=== PATIENT | female | born 1990 | race Asian ===

== ENCOUNTER 2020-03-07 16:31 | Inpatient (IN) | payer BC ==
[~2020-03-07] VITALS: Ht 165.1 cm; Wt 77.3 kg
[~2020-03-07 16:31] MED LIST: FERR325T18 PO; IBUP-1222 PO; OXYC-302 PO; PREN1TAB52 PO
[2020-03-07] MEDS ORDERED: OXYTOCIN 30U/ 0.9% NaCL 500ML 500 ML IV ONE (16:54)
[2020-03-07] MEDS ORDERED: CALCIUM CARBONATE 500 MG TAB.CHEW PO PRN (17:00)
[2020-03-07] MEDS ORDERED: ONDANSETRON 2MG/ML, 2ML IVPush PRN ×2 (17:00→23:00)
[2020-03-07] MEDS ORDERED: FENTANYL PF 100 MCG/2ML IVPush PRN (17:00)
[2020-03-07] MEDS: LACTATED RINGERS 1,000 ML IV SCH ×2 (17:00→22:00)
[2020-03-07] MEDS ORDERED: TERBUTALINE 1 MG/ML, 1ML IVPush PRN (17:00)
[2020-03-07] MEDS ORDERED: FENTANYL PF 100 MCG/2ML IV PRN (17:00)
[2020-03-07] MEDS ORDERED: TERBUTALINE 1 MG/ML, 1ML SQ PRN (17:00)
[2020-03-07 17:19] LABS: BASOPHILS # (AUTO) 0.04 x10^3/uL (0-0.1); BASOPHILS % (AUTO) 1 % (0-1); EOSINOPHILS # (AUTO) 0.05 x10^3/uL (0-0.4); EOSINOPHILS % (AUTO) 1 % (1-7); LYMPHOCYTES # (AUTO) 1.58 x10^3/uL (1-3.4); LYMPHOCYTES % (AUTO) 19 % (22-44); MD NO; MEAN CORPUSCULAR HEMOGLOBIN 24.9 pg (27.0-34.8); MEAN CORPUSCULAR HGB CONC 32.4 g/dL (32.4-35.8); MEAN CORPUSCULAR VOLUME 76.9 fL (80-100); MEAN PLATELET VOLUME 9.1 fL (7.4-10.4); MONOCYTES # (AUTO) 0.38 x10^3/uL (0.2-0.8); MONOCYTES % (AUTO) 5 % (2-9); NEUTROPHILS # (AUTO) 6.31 x10^3/uL (1.8-6.8); NEUTROPHILS % (AUTO) 76 % (42-75); PLATELET COUNT 239 x10^3/uL (130-400); RED BLOOD COUNT 3.81 x10^6/uL (3.82-5.3); RED CELL DISTRIBUTION WIDTH 17.8 % (9.6-15.2)
[2020-03-07] MEDS ORDERED: PENICILLIN GK 5,000,000 UNITS in DEXTROSE 5% 100 ML IVPB ONE (17:30)
[2020-03-07] MEDS ORDERED: FENTANYL PF 100 MCG/2ML ONE ×2 (17:48→21:43)
[2020-03-07] MEDS ORDERED: D5%-LACTATED RINGERS 1,000 ML IV SCH (18:30)
[2020-03-07] MEDS ORDERED: OXYTOCIN 30U/ 0.9% NaCL 500ML 500 ML ONE (18:30)
[2020-03-07] MEDS ORDERED: OXYTOCIN 30U/ 0.9% NaCL 500ML 500 ML IV PRN (18:39)
[2020-03-07] MEDS: PENICILLIN GK 2,500,000 UNITS in DEXTROSE 5% 100 ML IVPB SCH (21:30)
[2020-03-07] MEDS ORDERED: FENTANYL/BUPIV./NS/PF 250 ML EPIDCONT SCH ×2 (21:53→22:42)
[2020-03-07] MEDS ORDERED: BUPIVACAINE 0.25% ONE (22:09)
[2020-03-07] MEDS ORDERED: FENTANYL/BUPIV./NS/PF 250 ML EPIDCONT ONE (22:09)
[2020-03-07] MEDS ORDERED: DIPHENHYDRAMINE 50 MG/ML, 1ML IVPush PRN (23:00)
[2020-03-07] MEDS ORDERED: NALOXONE 0.4 MG/ML, 1ML IVPush PRN (23:00)
[2020-03-07] MEDS ORDERED: LACTATED RINGERS 1,000 ML IVBOLUS PRN (23:00)
[2020-03-07] MEDS ORDERED: EPHEDRINE 50 MG/ML, 1ML IVPush PRN (23:00)
[2020-03-07] MEDS ORDERED: NEWBORN KIT ONE (23:11)
[2020-03-08] MEDS ORDERED: OXYTOCIN 30U/ 0.9% NaCL 500ML 500 ML ONE (01:15)
[2020-03-08] MEDS ORDERED: PENICILLIN GK 2,500,000 UNITS in DEXTROSE 5% 100 ML IV SCH (01:30)
[2020-03-08] MEDS: LACTATED RINGERS 1,000 ML IV SCH ×4 (01:35→22:42)
[2020-03-08] MEDS: PENICILLIN GK 2,500,000 UNITS in DEXTROSE 5% 100 ML IVPB SCH (01:37)
[2020-03-08] MEDS: OXYTOCIN 30U/ 0.9% NaCL 500ML 500 ML IV SCH ×3 (02:17→22:17)
[2020-03-08] MEDS ORDERED: DIPH,PERTUSS(ACELL),TET VAC/PF NC IM-VACC PRN (02:30)
[2020-03-08] MEDS ORDERED: MAGNESIUM HYDROXIDE 8%, 30ML UDC PO PRN (02:30)
[2020-03-08] MEDS ORDERED: MISOPROSTOL 200 MCG TABLET PR PRN (02:30)
[2020-03-08] MEDS ORDERED: OXYcodone/APAP 5/325MG TABLET PO PRN ×2 (02:30)
[2020-03-08] MEDS ORDERED: ONDANSETRON 2MG/ML, 2ML IV PRN (02:30)
[2020-03-08] MEDS ORDERED: RHOGAM FROM BLOOD BANK 1 NOTE EA IM/IV ONE (02:30)
[2020-03-08] MEDS ORDERED: SIMETHICONE 80 MG CHEW TAB PO PRN (02:30)
[2020-03-08] MEDS ORDERED: ACETAMINOPHEN 325 MG TABLET PO PRN ×2 (02:30)
[2020-03-08 04:55] VITALS: BP 104/68
[2020-03-08 08:00] VITALS: BP 110/75
[2020-03-08] MEDS: IBUPROFEN 600 MG TABLET PO PRN ×4 (08:10→20:35)
[2020-03-08 09:52] LABS: BASOPHILS # (AUTO) 0.02 x10^3/uL (0-0.1); BASOPHILS % (AUTO) 0 % (0-1); EOSINOPHILS # (AUTO) 0.05 x10^3/uL (0-0.4); EOSINOPHILS % (AUTO) 1 % (1-7); LYMPHOCYTES # (AUTO) 1.28 x10^3/uL (1-3.4); LYMPHOCYTES % (AUTO) 14 % (22-44); MD NO; MEAN CORPUSCULAR HEMOGLOBIN 24.5 pg (27.0-34.8); MEAN CORPUSCULAR HGB CONC 31.7 g/dL (32.4-35.8); MEAN CORPUSCULAR VOLUME 77.4 fL (80-100); MEAN PLATELET VOLUME 8.9 fL (7.4-10.4); MONOCYTES # (AUTO) 0.46 x10^3/uL (0.2-0.8); MONOCYTES % (AUTO) 5 % (2-9); NEUTROPHILS # (AUTO) 7.65 x10^3/uL (1.8-6.8); NEUTROPHILS % (AUTO) 81 % (42-75); PLATELET COUNT 228 x10^3/uL (130-400); RED BLOOD COUNT 3.83 x10^6/uL (3.82-5.3)
[2020-03-08] MEDS: PRENATAL VIT/IRON/FA 1 EACH TABLET PO SCH (10:58)
[2020-03-08] MEDS: DOCUSATE 100 MG CAPSULE PO PRN ×2 (10:58→20:36)
[2020-03-08 12:10] VITALS: BP 104/67
[2020-03-08 16:49] VITALS: BP 107/62
[2020-03-08 19:34] VITALS: BP 102/66
[2020-03-09 00:27] VITALS: BP 104/67
[2020-03-09] MEDS: IBUPROFEN 600 MG TABLET PO PRN ×2 (02:55→08:37)
[2020-03-09] MEDS: LACTATED RINGERS 1,000 ML IV SCH ×2 (06:42→14:42)
[2020-03-09] MEDS: OXYTOCIN 30U/ 0.9% NaCL 500ML 500 ML IV SCH (07:29)
[2020-03-09 08:00] VITALS: BP 109/63
[2020-03-09] MEDS: PRENATAL VIT/IRON/FA 1 EACH TABLET PO SCH ×2 (08:14→08:22)
[2020-03-09] MEDS: DOCUSATE 100 MG CAPSULE PO PRN (08:21)
[2020-03-09] MEDS ORDERED: IBUP-1222 PO (10:17)
[2020-03-09] MEDS ORDERED: IBUP-1223 PO (10:17)
[2020-03-09] MEDS ORDERED: DOCU-131 PO (10:20)
== END 2020-03-09 17:37 | disposition home or self-care (01) | DRG 807 ==
LOC: LDOP 16:31 → LDIP 17:05 → 2NW 03-08 04:45
PROVIDERS: ADMIT Obstetrics & Gynecology; ATTEND Obstetrics & Gynecology
PROC: 10E0XZZ Delivery of Products of Conception, External Approach (ICD-10-PCS; principal; 2020-03-08)
PROC: 0HQ9XZZ Repair Perineum Skin, External Approach (ICD-10-PCS; 2020-03-08)
PROC: 3E0R3BZ Introduction of Anesthetic Agent into Spinal Canal, Percutaneous Approach (ICD-10-PCS; 2020-03-08)
PROC: 00HU33Z Insertion of Infusion Device into Spinal Canal, Percutaneous Approach (ICD-10-PCS; 2020-03-08)
DX: O42.913 Preterm premature rupture of membranes, unspecified as to length of time between rupture and onset of labor, third trimester (principal); Z37.0 Single live birth; O76 Abnormality in fetal heart rate and rhythm complicating labor and delivery; O70.0 First degree perineal laceration during delivery; Z3A.35 35 weeks gestation of pregnancy
CPT/HCPCS: 36415; 82803; 85025; 86592; 86850; 86900; 90715; G0378; J2540; J3010; J2590; J7120